=== PATIENT | male | born 2000 | race Two or more races ===

== ENCOUNTER 2023-08-20 16:57 | Emergency (ER) | payer MEDICAID, OTHER ==
[~2023-08-20] VITALS: Ht 182.9 cm; Wt 123.0 kg
[2023-08-20 18:53] VITALS: BP 106/46; PULSE 69; RESP 18; TEMP 98; O2SAT 96
[2023-08-20] MEDS ORDERED: TETANUS-DIPTH-ACEL PERTUSSIS 0.5ML SYR Tdap IM ONE (19:30)
[2023-08-20] MEDS ORDERED: CEPH500C PO (19:47)
[2023-08-20] MEDS ORDERED: MUPI2OIN2 EX (19:47)
[2023-08-20] MEDS ORDERED: IBUP1TAB5 PO (19:47)
[2023-08-20] MEDS: TETANUS-DIPTH-ACEL PERTUSSIS 0.5ML SYR Tdap IM ONE (21:05)
[2023-08-20] MEDS: NEOMYCIN-BACITRACIN-POLYM UNITDOSE PKG TOP OINT TOP ONE (21:07)
== END 2023-08-20 21:14 | disposition home or self-care (01) ==
LOC: ER 16:57
DX: S51.811A Laceration without foreign body of right forearm, initial encounter (principal); W26.8XXA Contact with other sharp object(s), not elsewhere classified, initial encounter; Y93.89 Activity, other specified; Y92.89 Other specified places as the place of occurrence of the external cause; Y99.8 Other external cause status
CPT/HCPCS: 12002; 90471; 90715